=== PATIENT | female | born 1950 | race Hispanic/Latino ===

== ENCOUNTER 2024-05-02 18:34 | Emergency (ER) | payer MEDICARE, OTHER ==
[~2024-05-02] VITALS: Ht 152.4 cm; Wt 77.1 kg
[2024-05-02] MEDS: ONDANSETRON HCL INJ 2MG/ML 2ML 2 MG/ML VIAL IV STA (19:20)
[2024-05-02] MEDS: Morphine 4mg INJECTION 4 MG/ML INJ IV STA (19:21)
[2024-05-02] MEDS: SODIUM CHLORIDE 0.9% 1000ML 1,000 ML IV STA (19:21)
[2024-05-02 19:41] LABS: BASOPHILS % 0.3 % (0.0-1.0); EOSINOPHILS % 0.3 % (0.0-6.0); HEMATOCRIT 39.9 % (34.2-44.1); HEMOGLOBIN 13.9 g/dL (12.0-16.0); LYMPHOCYTES # (AUTO) 0.7 (1.0-3.2); LYMPHOCYTES % 7.1 % (18.0-39.1); MEAN CORPUSCULAR HEMOGLOBIN 30.9 pg (28-32); MEAN CORPUSCULAR HGB CONC 34.8 g/dL (31-35); MEAN CORPUSCULAR VOLUME 88.7 fL (81-99); MONOCYTES # (AUTO) 0.2 (0.2-0.8); MONOCYTES % 2.6 % (4.4-11.3); NEUTROPHILS # (AUTO) 8.3 (2.1-6.9); NEUTROPHILS % 89.4 % (38.7-80.0); PLATELET COUNT 240 x10e3/uL (140-360); RED CELL DISTRIBUTION WIDTH 13.3 % (11.7-14.4); WHITE BLOOD COUNT 9.33 x10e3/uL (4.8-10.8)
[2024-05-02 20:10] LABS: ALBUMIN 4.7 g/dL (3.5-5.0); ALBUMIN/GLOBULIN RATIO 1.4 (0.8-2.0); ANION GAP 18.8 mmol/L (8-16); BILIRUBIN,TOTAL 0.9 mg/dL (0.2-1.2); CREATININE, SERUM 1.62 mg/dL (0.57-1.11); TOTAL PROTEIN 8.1 g/dL (6.5-8.1)
[2024-05-02] MEDS: HYDROMORPHONE 1MG/1ML INJ IV STA (20:13)
[2024-05-02 20:15] LABS: TROPONIN I 0.047 ng/mL (0-0.300)
[2024-05-02 20:18] LABS: POTASSIUM 2.8 mmol/L (3.5-5.1)
[2024-05-02] MEDS ORDERED: IOPAMIDOL 370 MG/ML 100 ML INFUS..BTL INJ ONE (20:35)
[2024-05-02 21:18] LABS: CLARITY,URINE CLEAR (CLEAR); COLOR,URINE STRAW (YELLOW)
[2024-05-02 21:19] LABS: GLUCOSE, URINE NEGATIVE (NEGATIVE); LEUKOCYTE ESTERASE ,URINE TRACE (NEGATIVE); NITRITE,URINE NEGATIVE (NEGATIVE); PH,URINE 7 (5 - 7); PROTEIN,URINE DIPSTICK NEGATIVE (NEGATIVE)
[2024-05-02 21:20] LABS: BILIRUBIN,URINE NEGATIVE (NEGATIVE); KETONES,URINE 2+ (NEGATIVE); URINE UROBILINOGEN 0.2 mg/dL (0.2 - 1)
[2024-05-02 21:28] VITALS: BP 153/75; PULSE 73; RESP 18
[2024-05-02 21:38] LABS: BACTERIA,URINE FEW /HPF; EPITHELIAL CELLS,URINE FEW /LPF; RBC,URINE 0-5 /HPF (0-5)
[2024-05-02 21:39] LABS: WBC,URINE (MAN) 0-5 /HPF (0-5)
[2024-05-02] MEDS ORDERED: PROTONIX40 MG PO (23:36)
[2024-05-02] MEDS ORDERED: ONDANSETRON ODT4 MG PO (23:36)
[2024-05-02] MEDS: POTASSIUM CHLORIDE 20 MEQ TAB CR PO STA (23:52)
[2024-05-02 23:54] VITALS: PULSE 71; RESP 18; TEMP 98.3; O2SAT 100
[2024-05-03] MEDS: POTASSIUM CHLORIDE 20MEQ/100ML 100 ML IV STA (00:03)
== END 2024-05-03 00:02 | disposition home or self-care (01) ==
LOC: ER 18:38
DX: R10.30 Lower abdominal pain, unspecified (principal); K29.70 Gastritis, unspecified, without bleeding; K29.80 Duodenitis without bleeding; R11.2 Nausea with vomiting, unspecified; R03.0 Elevated blood-pressure reading, without diagnosis of hypertension; E87.6 Hypokalemia; E11.65 Type 2 diabetes mellitus with hyperglycemia; I10 Essential (primary) hypertension; Z85.3 Personal history of malignant neoplasm of breast
CPT/HCPCS: 36415; 74177; 80053; 81001; 82550; 83690; 84484; 85025; 93005; 99284; J1171; J2270; J2405; J7030; Q9967

== ENCOUNTER → 2024-06-17 | Day surgery (SDC) | payer MEDICARE ==
[2024-05-27 11:28] LABS: BASOPHILS % 0.7 % (0.0-1.0); EOSINOPHILS # (AUTO) 0.1 (0.0-0.4); EOSINOPHILS % 2.6 % (0.0-6.0); HEMATOCRIT 38.1 % (34.2-44.1); HEMOGLOBIN 12.5 g/dL (12.0-16.0); LYMPHOCYTES # (AUTO) 1.2 (1.0-3.2); LYMPHOCYTES % 21.6 % (18.0-39.1); MEAN CORPUSCULAR HEMOGLOBIN 31.3 pg (28-32); MEAN CORPUSCULAR HGB CONC 32.8 g/dL (31-35); MEAN CORPUSCULAR VOLUME 95.3 fL (81-99); MONOCYTES # (AUTO) 0.4 (0.2-0.8); MONOCYTES % 6.5 % (4.4-11.3); NEUTROPHILS # (AUTO) 3.7 (2.1-6.9); NEUTROPHILS % 68.4 % (38.7-80.0); PLATELET COUNT 242 x10e3/uL (140-360); RED CELL DISTRIBUTION WIDTH 13.6 % (11.7-14.4); WHITE BLOOD COUNT 5.42 x10e3/uL (4.8-10.8)
[~2024-06-17] MED LIST: ACETAMINOPHEN PO; BREYNA 80-4.510.3 GM INH; EPHEDRINE SULFATE INJ 50 MG/ML VIAL ONE; FENTANYL CITRATE/PF 100MCG/2 ML INJ ONE; FERROUS SULFAT325 MG PO; FOLIC ACID0.4 MG PO; GABAPENTIN300 MG PO; GLUCAGON FOR INJ 1 MG VIAL ONE; HYOSCYAMINE SULFATE 0.5 MG/ML INJ ONE; LEVOTHYROXINE50 MCG PO; LEXAPRO20 MG PO; LIDOCAINE HCL 2% LOCAL INJ 5 ML SDV VIAL INJ ONE; LIPITOR10 MG PO; LOSARTAN POTAS100 MG PO; METOCLOPRAMIDE HCL 10 MG/2ML VIAL ONE; NOVOLIN N100 UNIT/1 SC; NOVOLIN R100 UNIT/1 SC; OMEPRAZOLE40 MG PO; ONDANSETRON ODT4 MG PO; OZEMPIC2 MG/0.75 SC; PROPOFOL IV EMULSION 10 MG/ML 20 ML VIAL ONE; PROPOFOL IV EMULSION 50 ML IV ONE; PROTONIX40 MG PO; SODIUM CHLORIDE 0.9% 100 ML ONE; TRULANCE3 MG PO; VIT D3 PO
[2024-06-17 13:33] VITALS: TEMP 97.4
[2024-06-17] MEDS: LACTATED RINGER'S 1,000 ML ONE (13:47)
[2024-06-17 14:15] VITALS: BP 118/67; PULSE 85; RESP 16; O2SAT 99
== END | disposition home or self-care (01) ==
LOC: OR 10:46
PROVIDERS: ATTEND Internal Medicine Gastroenterology
DX: K29.50 Unspecified chronic gastritis without bleeding (principal); K31.89 Other diseases of stomach and duodenum; K20.90 Esophagitis, unspecified without bleeding; K21.9 Gastro-esophageal reflux disease without esophagitis; K59.09 Other constipation; K64.8 Other hemorrhoids; D72.820 Lymphocytosis (symptomatic); Z71.3 Dietary counseling and surveillance; D64.9 Anemia, unspecified; J45.909 Unspecified asthma, uncomplicated; E03.9 Hypothyroidism, unspecified; I10 Essential (primary) hypertension; Z71.89 Other specified counseling; E78.5 Hyperlipidemia, unspecified; E10.9 Type 1 diabetes mellitus without complications; F41.9 Anxiety disorder, unspecified; F32.A Depression, unspecified; Z01.810 Encounter for preprocedural cardiovascular examination; Z01.812 Encounter for preprocedural laboratory examination; Z79.4 Long term (current) use of insulin; Z79.899 Other long term (current) drug therapy; Z79.85 Long-term (current) use of injectable non-insulin antidiabetic drugs; Z68.26 Body mass index [BMI] 26.0-26.9, adult; Z85.3 Personal history of malignant neoplasm of breast
CPT/HCPCS: 36415 ×2; 43239; 45378; 82948; 85025; 93005; J1610; J1980; J2003; J2470; J2704 ×2; J2765; J3010; J7050; J7121